=== PATIENT | male | born 1960 | race Caucasian/White ===

== ENCOUNTER 2018-01-26 12:25 | Emergency (ER) | payer OTHER ==
--- NOTE | 2018-01-26 13:35 | XRAY Preliminary Report ---
Exam: XR FOOT 3 VIEW RT IMPRESSION: Normal foot radiography. [facility] SITE ID: [id number]
--- NOTE | 2018-01-26 13:48 | XRAY Report ---
EXAM: RIGHT FOOT RADIOGRAPHY EXAM DATE: 01/26/2018 01:22 PM. CLINICAL HISTORY: Pain after a fall on steps. COMPARISON: None. TECHNIQUE: 3 views. FINDINGS: Bones: Normal. No fractures or bone lesions. Joints: Normal. No subluxations. Soft Tissues: Normal. No soft tissue swelling. IMPRESSION: Normal foot radiography. [facility] Referring Provider Line: [phone] SITE ID: [id number]
--- NOTE | 2018-01-26 13:54 | ED Physician Documentation ---
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 No: Weakness, Numbness, Tingling Contributing factors: No: Anticoagulated, Prior ortho surgery Recently seen: Not recently seen Review of Systems Neurologic: denies: Focal weakness, Numbness PD PAST MEDICAL HISTORY - Past Medical History Past Medical History: No - Past Surgical History Past Surgical History: No - Present Medications Home Medications: Ambulatory Orders Medication Instructions Recorded Confirmed Ibuprofen [Motrin] 800 mg PO Q8H PRN #30 tablet 01/26/18 Pravastatin [Pravachol] 01/26/18 - Allergies Allergies/Adverse Reactions: Allergies Allergy/AdvReac Type Severity Reaction Status Date / Time No Known Drug Allergies Allergy Verified 01/26/18 12:51 - Living Situation Living Situation: reports: With family Living Arrangement: reports: At home - Social History Does the pt have substance abuse?: No - Family History Family history: reports: Non contributory - Immunizations Immunizations are current?: Yes Immunizations: TDAP current <10years PD ED PE NORMAL - Vitals Vital signs reviewed: Yes - General General: Alert and oriented X 3, No acute distress - Derm Derm: Warm and dry - Extremities Extremities: Other (R LE - Normal examination of the ankle. There is slight tenderness at the base of the fifth metatarsal. Mild swelling in this area as well. Neurovascularly intact. Otherwise normal examination of the foot and ankle.) - Neuro Neuro: Alert and oriented X 3 Results - Vitals Vitals: Vital Signs - 24 hr 01/26/18 01/26/18 12:48 14:09 Temperature 36.4 C L 36.9 C Heart Rate 106 H 90 Respiratory 18 19 Rate Blood Pressure 114/91 H 126/90 H O2 Saturation 97 97 Oxygen O2 Source Room air - Rads (name of study) R foot xray Radiology: Prelim report reviewed, EMP read contemporaneously, See rad report ( normal) PD MEDICAL DECISION MAKING - ED course Complexity details: reviewed results, re-evaluated patient, considered differential, d/w patient, d/w family ED course: Patient is a 57-year-old male with a right foot sprain. Placed in a postoperative shoe and given crutches. Will prescribe Motrin for home. Neurovascularly intact. Counseled regarding missed fractures secondary to acute swelling and may need repeat xrays if not improving. Patient counseled regarding signs and symptoms for which I believe and urgent re-evaluation would be necessary. Patient with good understanding of and agreement to plan and is comfortable going home at this time This document was made in part using voice recognition software. While efforts are made to proofread this document, sound alike and grammatical errors may occur. - Sepsis Event Vital Signs: Vital Signs - 24 hr 01/26/18 01/26/18 12:48 14:09 Temperature 36.4 C L 36.9 C Heart Rate 106 H 90 Respiratory 18 19 Rate Blood Pressure 114/91 H 126/90 H O2 Saturation 97 97 Oxygen O2 Source Room air Departure - Departure Disposition: 01 Home, Self Care Clinical Impression: Sprain of foot, right Qualifiers: Encounter type: initial encounter Qualified Code(s): S93.601A - Unspecified sprain of right foot, initial encounter Condition: Good Instructions: ED Sprain Foot Follow-Up: [facility] MD [Primary Care Provider] - Within 1 week Prescriptions: Ibuprofen [Motrin] 800 mg PO Q8H PRN #30 tablet PRN Reason: PAIN &/OR FEVER Comments: You may bear weight as tolerated. You may utilize Motrin or Tylenol as needed for pain. Return if you worsen. If you are still having pain in 1 week, you should follow-up with your doctor for repeat evaluation. Small fractures may be missed initially secondary to swelling. Discharge Date/Time: 01/26/18 14:24
[2018-01-26 14:10] VITALS: BP 126/90
== END 2018-01-26 14:24 | disposition home or self-care (01) ==
LOC: ED 12:25
DX: S93.601A Unspecified sprain of right foot, initial encounter (principal); X50.0XXA Overexertion from strenuous movement or load, initial encounter; Y92.029 Unspecified place in mobile home as the place of occurrence of the external cause
CPT/HCPCS: 99283